=== PATIENT | female | born 1995 | race Caucasian/White ===

== ENCOUNTER 2019-11-19 20:01 | Emergency (ER) | payer OTHER ==
[~2019-11-19] VITALS: Ht 162.6 cm; Wt 96.2 kg
[2019-11-19 20:08] VITALS: BP 142/66
--- NOTE | 2019-11-19 20:13 | NUR ---
PT AMBULATED TO LOBBY
--- NOTE | 2019-11-19 20:19 | NUR ---
PT AMBULATED TO BED 08
--- NOTE | 2019-11-19 20:20 | NUR ---
PT 24 Y/O FEMALE BIB SELF FOR C/O R ANKLE PAIN AND R HAND PAIN S/P FALLING DOWN THREE STAIRS. R ANKLE PAIN 5/10. NON PITTING EDEMA NOTED. CMS INTACT. CAP REFIL <3. HAND PAIN 4/10. CMS INTACT. CAP REFIL <3. PT DENIES HITTING HEAD. NO PAIN MEDICATIONS WERE TAKEN AT HOME. RESPIRATIONS ARE EVEN AND UNLABORED. SKIN IS WARM AND DRY TO TOUCH. DENIES N/V/D. AFEBRILE. DENIES COUGH. PT AXO X4. PT SITTING UPRIGHT IN BED. BED LOCKED IN LOWEST POSITION. MED HX: NONE ALLERGIES: NKA
--- NOTE | 2019-11-19 20:54 | NUR ---
X-Ray at bedside.
[2019-11-19] MEDS ORDERED: KETOROLAC 60 MG/2 ML VIAL IM ONE (21:25)
--- NOTE | 2019-11-19 21:42 | NUR ---
PT WAS GIVEN A ANKLE STIRRUP. PTS PMSC WNL. PT ALSO DENIED THE CRUTCHES
--- NOTE | 2019-11-19 21:54 | NUR ---
PT DECIDED THAT SHE WANTED THE CRUTCHES AFTER ALL. PT SHOWED GOOD USE OF THE CRUTCHES.
[2019-11-19 21:56] VITALS: BP 142/66
--- NOTE | 2019-11-19 21:56 | NUR ---
PT DISCHARGED WITH PAPERWORK. EDUCATED PT REGARDING MEDICATIONS AND D/C INSTRUCTIONS. PROVIDED CRUTCHES AND ANKLE SPLINT. PT VERBALIZED UNDERSTANDING WITH TEACHING. TOLD PT TO FOLLOW UP WITH PCP AND WHEN TO RETURN TO ED. PT AT STABLE CONDITION. ALL QUESTIONS ANSWERED
== END 2019-11-19 21:56 | disposition home or self-care (01) ==
LOC: MED 20:01
DX: S66.911A Strain of unspecified muscle, fascia and tendon at wrist and hand level, right hand, initial encounter (principal); S96.911A Strain of unspecified muscle and tendon at ankle and foot level, right foot, initial encounter; S93.401A Sprain of unspecified ligament of right ankle, initial encounter; W10.8XXA Fall (on) (from) other stairs and steps, initial encounter; Y93.89 Activity, other specified; Y92.89 Other specified places as the place of occurrence of the external cause; Y99.8 Other external cause status
CPT/HCPCS: 29515; 73130; 73610; 73630; 96372; 99283; J1885; Q0092

== ENCOUNTER 2019-12-18 22:41 | Emergency (ER) | payer OTHER ==
[~2019-12-18] VITALS: Ht 160 cm; Wt 95.3 kg
[2019-12-18 22:50] VITALS: BP 131/85
--- NOTE | 2019-12-18 22:53 | NUR ---
TO LOBBY A/W BED AMBULATORY
--- NOTE | 2019-12-18 23:32 | NUR ---
PT AMBULATED TO BED 12
--- NOTE | 2019-12-18 23:35 | NUR ---
PT 24 Y/O FEMALE BIB SELF FOR C/O R THUMB AND WRIST PAIN S/P SOFT BALL TRAUMA. PT PAIN 6/10 IS SHARP AND RADIATES TO R ELBOW. PT DENIES TAKING ANY PAIN MEDICATION AND STATES, "PAIN IS TOLERABLE." CMS+, NO SWELLING OR REDNESS NOTED. SKIN IS WARM TO TOUCH. DENIES COUGH. DENIES N/V/D. RESPIRATIONS ARE EVEN AND UNLABORED. PILLOW PLACED UNDER PT R WRIST FOR COMFORT/SUPPORT. MEDHX: NONE ALLERGIES: NKA
--- NOTE | 2019-12-19 00:16 | NUR ---
[facility] EMT PLACED R THUMB SPICA SLINT. CMS +, PT DENIES NUMBNESS AND TINGLING OF HAND OR WRIST. CAP REFILL <3. PT PAIN 04/17. PT REFUSED MEDICATION AND STATES, "PAIN IS TOLERABLE."
[2019-12-19 00:25] VITALS: BP 131/85
== END 2019-12-19 00:25 | disposition home or self-care (01) ==
LOC: MED 22:41
DX: S63.501A Unspecified sprain of right wrist, initial encounter (principal); W22.8XXA Striking against or struck by other objects, initial encounter; Y93.89 Activity, other specified; Y92.89 Other specified places as the place of occurrence of the external cause; Y99.8 Other external cause status
CPT/HCPCS: 29125; 73130; 99283; Q0092